=== PATIENT | female | born 1940 | race Caucasian/White ===

== ENCOUNTER 2022-11-06 08:53 | Outpatient (CLI) | payer MEDICARE, BC, SELFPAY ==
--- OUTSIDE RECORDS SUMMARY | 2022-11-06 09:01 | XMS_ITS | Continuity of Care Document ---
Demographics Address [address] [place] [address] Work Phone Home Phone Email Address Preferred Language en Marital Status Judaism Affiliation Unknown Race Unknown Ethnic Group Unknown Author Name Unknown Organization [facility] Address [address] [place] [address] Phone Care Team Providers Care Shipping And Receiving Specialist Name Role Phone Kisha Alvarado MD Unavailable Unavailable Allergies, Adverse Reactions, Alerts Substance Reaction Status Criticality No Known Allergies Active No Inform ation Medications Medication Instructions Dosage Effective Dates (start - stop) Status Comments OMEPRAZOLE (unknown strength) Not Available - Active FISH OIL (unknown strength) Not Available - Active MULTIVITAMINS (unknown strength) Not Available - Active GLUCOSAMINE SULFATE (unknown strength) Not Available - Active CALCIUM (unknown strength) Not Available - Active CINNAMON (unknown strength) Not Available - Active Procedures Procedure Date Office/Outpatient Visit,Est, Mod 2014 X-Ray Exam Lwr Spine, Min 4 Views Office/Outpatient Visit,New, [facility] [place] [facility] 2014 Advance Directives Directive Yes / No Effective Date File Name No Information Encounters Encounter Description Practice Location Reason(s) For Visit Diagnoses Date Provider Providers Copied on Encounter [facility], [address], [place], [place], [id number] , [place] tel:[phone] [facility] No Information [phone] Beard. [facility], [address], [facility] [address], [place], [place], [id number], [place]. tel:[phone] Office/Outpa tient Visit,Est, Mod [facility], [address], [place], [place], [id number] , [place] [phone] [facility] OVERWEIGHTHyper tension, UnspecifiedBack ache, unspecifiedSpin al stenosis of lumbar region with neurogenic claudication 5 Transfeldt Ensor. [facility], [address], [address], [place], [place], [id number], [place]. tel:[phone] Office/Outpa tient Visit,New, [place] [facility], [address], [place], [place], [id number] , [place] tel:[phone] [facility] Backache, unspecifiedOVER WEIGHTSpinal stenosis of lumbar region without neurogenic claudication 5 Transfeldt Ensor. [facility], [address] [place] [address], [address], [place], [place], [id number], [place]. tel:[phone] Family History Family Member Type Diagnosis Age At Onset Problem (finding) Problem (finding) Payers Payer name Insurance type Covered libertarian ID Authoriza tion(s) [employer] José Miguel [id number] Social History Type Description Quantity Date Captured Comments Sex Female Smoking Status No Information Chief Complaint And Reason For Visit No Information Reason For Referral Reason For Referral No Information Plan Of Treatment Date Type Action Status No Information History Of Present Illness Encounter Date Complaint History Of Prese nt Illness No Information Functional Status Date Functional Assessmen t No Information Instructions Date Instruction Additional Infor indra Weight Management Related to Ove rweight Exercise education Related to Un specified Essential Hypertension Weight Management Related to Ove rwght Assessments Type Assessment Date No Information Patient Care Teams Name Effective Dates (start - stop) Status Members No Information
== END 2022-11-06 08:54 | disposition home or self-care (01) ==
PROVIDERS: PCP Physician Assistant; Visit Provider Physician Assistant
DX: M19.90 Unspecified osteoarthritis, unspecified site (principal); Z98.890 Other specified postprocedural states
CPT/HCPCS: 85651; 86039; 86140; 86200; 86431